=== PATIENT | female | born 1995 | race Caucasian/White ===

== ENCOUNTER 2020-03-16 09:33 | Outpatient (CLI) | payer OTHER ==
--- NOTE | 2020-03-16 10:23 | Non Stress Test Report ---
Non Stress Test Datetime Report Generated by CPN: 03/16/2020 10:23 DEMOGRAPHIC EGA NST: 34.2 INDICATION Indication for Study (NST) Other: 34 weeks 2 vessel cord VITAL SIGNS Temperature - NST: 98.5 Pulse - NST: 117 RESP - NST: 16 NBPSYS NST: 125 NBPDIA NST: 60 MONITORING Monitor Explained: Monitor Explained; Test Explained; Patient Verbalized Understanding Time on Monitor: 03/16/2020 09:04 Time off Monitor: 03/16/2020 10:09 NST Duration: 65 NST INTERVENTIONS NST Interventions: PO Hydration Physician Notified NST: foss BABY A: [id number] BABY A Movement : Present Contraction Frequency : 0 FHR Baseline : 155 Accelerations : 15X15 Decelerations : None Variability : Moderate 6-25bpm NST Review: Meets Criteria for Reactive NST NST Review and Verified By : CLAUDIA Ramírez NSAnnemarie Results: Reactive NST REPORT Report Trigger: Send Report
== END 2020-03-16 10:14 | disposition home or self-care (01) ==
LOC: LC 09:33
PROVIDERS: ATTEND Student in an Organized Health Care Education/Training Program
DX: O36.93X1 Maternal care for fetal problem, unspecified, third trimester, fetus 1 (principal); Z3A.34 34 weeks gestation of pregnancy
CPT/HCPCS: 59025

== ENCOUNTER 2020-04-22 14:30 | Outpatient (CLI) | payer OTHER ==
--- NOTE | 2020-04-22 15:25 | Non Stress Test Report ---
Non Stress Test Datetime Report Generated by CPN: 04/22/2020 15:25 DEMOGRAPHIC EGA NST: 39.4 INDICATION Indication for Study (NST) Other: Two Vessel Cord, Repeat NST from Office VITAL SIGNS Temperature - NST: 98.4 Pulse - NST: 102 RESP - NST: 18 NBPSYS NST: 134 NBPDIA NST: 69 MONITORING Monitor Explained: Monitor Explained; Test Explained; Patient Verbalized Understanding Time on Monitor: 04/22/2020 14:41 Time off Monitor: 04/22/2020 15:10 NST Duration: 29 NST INTERVENTIONS NST Interventions: PO Hydration; Reposition Patient Physician Notified NST: J.Nelson,CNM BABY A: [id number] BABY A Movement : Present Contraction Frequency : Irregular FHR Baseline : 140 Accelerations : 15X15 Decelerations : None Variability : Moderate 6-25bpm NST Review: Meets Criteria for Reactive NST NST Review and Verified By : Gisel Benitez RN NST Results: Reactive NST REPORT Report Trigger: Send Report
== END 2020-04-22 15:17 | disposition home or self-care (01) ==
LOC: LC 14:30
PROVIDERS: ATTEND Obstetrics & Gynecology Gynecology
DX: O47.1 False labor at or after 37 completed weeks of gestation (principal); Z3A.39 39 weeks gestation of pregnancy
CPT/HCPCS: 59025

== ENCOUNTER 2020-04-29 14:54 | Outpatient (CLI) | payer OTHER ==
[2020-04-29 15:26] LABS: APPEARANCE,URINE CLOUDY; BILIRUBIN,URINE NEGATIVE (NEGATIVE); COLOR,URINE YELLOW; GLUCOSE, URINE NEGATIVE (NEGATIVE); KETONES,URINE NEGATIVE (NEGATIVE); LEUKOCYTE ESTERASE,URINE LARGE (NEGATIVE); NITRITE,URINE NEGATIVE (NEGATIVE); PROTEIN,URINE NEGATIVE (NEGATIVE); UROBILINOGEN,URINE NEGATIVE mg/dL (<2.0)
[2020-04-29 15:42] LABS: URINE AMPHETAMINES SCREEN NEGATIVE; URINE BARBITURATES SCREEN NEGATIVE; URINE BENZODIAZEPINES SCREEN NEGATIVE; URINE COCAINE SCREEN NEGATIVE; URINE MARIJUANA (THC) SCREEN NEGATIVE; URINE METHADONE SCREEN NEGATIVE; URINE PHENCYCLIDINE SCREEN NEGATIVE
--- NOTE | 2020-04-29 19:18 | RADIOLOGY REPORT (SQ) ---
EXAM DESCRIPTION: U/S PROFILE W/NONSTRESS IMAGES COMPLETED DATE/TIME: 04/29/2020 7:09 pm REASON FOR STUDY: BPP, flat strip, 2 vessel cord COMPARISON: None. TECHNIQUE: Limited minor-scale realtime and static images of the fetus to measure specified parameter s. LIMITATIONS: None. FINDINGS: HEART RATE: 162 beats per minute. SIMON: 10.2 cm cm. BREATHING MOVEMENT: 2 points. MOVEMENT: 2 points. POSTURE AND TONE: 2 points. QUALITATIVE SIMON: 2 points. OTHER: Vertex lie IMPRESSION: BIOPHYSICAL PROFILE: 05/08. Trimester of : Third - 28 weeks to delivery COMMENT: BREATHING MOVEMENTS: 2 POINTS: PRESENT 0 POINTS: ABSENT MOTION: 2 POINTS: PRESENT 0 POINTS: ABSENT TONE: 2 POINTS: PRESENT 0 POINTS: ABSENT AMNIOTIC FLUID VOLUME: 2 POINTS: LARGEST POCKET GREATER THAN 2 CM DEPTH. 0 POINTS: NO POCKET OF 2 CM. TECHNICAL DOCUMENTATION: JOB ID: [id number] 2010 [employer]- All Rights Reserved Reading location - IP/workstation name: [email or web address]
--- NOTE | 2020-04-29 23:19 | Non Stress Test Report ---
Non Stress Test Datetime Report Generated by CPN: 04/29/2020 23:19 DEMOGRAPHIC EGA NST: 40.4 INDICATION Indication for Study (NST) Other: labor check MONITORING Monitor Explained: Monitor Explained; Test Explained; Patient Verbalized Understanding Monitor Explained: Monitor Explained; Test Explained; Patient Verbalized Understanding Time on Monitor: 04/29/2020 21:46 Time off Monitor: 04/29/2020 22:19 Time off Monitor: 04/29/2020 22:22 NST Duration: 33 NST INTERVENTIONS NST Interventions: None NST Interventions: PO Hydration Physician Notified NST: BABY A: [id number] BABY A Movement : Present Movement : Present Contraction Frequency : 5-6 Contraction Frequency : irreg FHR Baseline : 140 FHR Baseline : 130 Accelerations : 15X15 Accelerations : 15X15 Decelerations : None Decelerations : None Variability : Moderate 6-25bpm Variability : Moderate 6-25bpm NST Review: Meets Criteria for Reactive NST NST Review: Meets Criteria for Reactive NST NST Review and Verified By : Xiomara hall RN NST Results: Reactive NST Results: Reactive NST REPORT Report Trigger: Send Report
== END 2020-04-29 22:30 | disposition home or self-care (01) ==
LOC: LC 14:54
PROVIDERS: ATTEND Obstetrics & Gynecology
DX: O47.1 False labor at or after 37 completed weeks of gestation (principal); Z3A.40 40 weeks gestation of pregnancy
CPT/HCPCS: 59025; 76818; 80307; 81005

== ENCOUNTER 2020-05-02 08:00 | Inpatient (IN) | payer OTHER ==
[2020-05-02 08:31] LABS: APPEARANCE,URINE SLIGHTLY-CLOUDY; BILIRUBIN,URINE NEGATIVE (NEGATIVE); COLOR,URINE YELLOW; GLUCOSE, URINE NEGATIVE (NEGATIVE); KETONES,URINE NEGATIVE (NEGATIVE); LEUKOCYTE ESTERASE,URINE SMALL (NEGATIVE); NITRITE,URINE NEGATIVE (NEGATIVE); PROTEIN,URINE NEGATIVE (NEGATIVE); URINE SPECIFIC GRAVITY 1.005; UROBILINOGEN,URINE NEGATIVE mg/dL (<2.0)
[2020-05-02 08:49] LABS: URINE AMPHETAMINES SCREEN NEGATIVE; URINE BARBITURATES SCREEN NEGATIVE; URINE BENZODIAZEPINES SCREEN NEGATIVE; URINE COCAINE SCREEN NEGATIVE; URINE MARIJUANA (THC) SCREEN NEGATIVE; URINE METHADONE SCREEN NEGATIVE; URINE PHENCYCLIDINE SCREEN NEGATIVE
--- NOTE | 2020-05-02 10:51 | RADIOLOGY REPORT (SQ) ---
EXAM DESCRIPTION: U/S PROFILE W/O STRESS IMAGES COMPLETED DATE/TIME: 05/02/2020 9:52 am REASON FOR STUDY: BPP COMPARISON: 04/29/2020. TECHNIQUE: Limited minor-scale realtime and static images of the fetus to measure specified parameter s. LIMITATIONS: None. FINDINGS: HEART RATE: 136 beats per minute. LVP: 2.0 cm. BREATHING MOVEMENT: 2 points. MOVEMENT: 2 points. POSTURE AND TONE: 2 points. QUALITATIVE SIMON: 2 points. OTHER: No other significant finding. IMPRESSION: BIOPHYSICAL PROFILE: 05/08. Trimester of : Third - 28 weeks to delivery COMMENT: BREATHING MOVEMENTS: 2 POINTS: PRESENT 0 POINTS: ABSENT MOTION: 2 POINTS: PRESENT 0 POINTS: ABSENT TONE: 2 POINTS: PRESENT 0 POINTS: ABSENT AMNIOTIC FLUID VOLUME: 2 POINTS: LARGEST POCKET GREATER THAN 2 CM DEPTH. 0 POINTS: NO POCKET OF 2 CM. TECHNICAL DOCUMENTATION: JOB ID: [id number] 2010 [employer]- All Rights Reserved Reading location - IP/workstation name: [email or web address]
[2020-05-02] MEDS ORDERED: LIDOCAINE 1% INJ-PF (10 MG/ML) 30 ML SDV ONE (13:43)
[2020-05-02] MEDS ORDERED: MISOPROSTOL 0.2 MG TABLET ONE (13:43)
[2020-05-02] MEDS ORDERED: OXYTOCIN/0.9 % SODIUM CHLORIDE 30 UNIT/500 ML RTUINJ ONE (13:43)
[2020-05-02] MEDS ORDERED: OXYTOCIN 10 UNIT/ML VIAL ONE (13:43)
[2020-05-02] MEDS: RINGERS SOLUTION,LACTATED 1,000 ML IV PRN ×3 (14:00→19:03)
[2020-05-02 14:27] LABS: HEMATOCRIT 38.4 % (36.0-47.0); HEMOGLOBIN 13.1 g/dL (12.0-15.5); MEAN CORPUSCULAR HEMOGLOBIN 29.6 pg (27.0-33.4); MEAN CORPUSCULAR VOLUME 87 fl (80-97); PLATELET COUNT 171 10^3/uL (150-450); RED BLOOD COUNT 4.42 10^6/uL (3.72-5.28); RED CELL DISTRIBUTION WIDTH 15.3 % (11.5-14.0); WHITE BLOOD COUNT 12.6 10^3/uL (4.0-10.5)
[2020-05-02] MEDS ORDERED: NALBUPHINE HCL INJ 10 MG/1 ML AMPULE IV ONE (15:44)
[2020-05-02] MEDS ORDERED: NALBUPHINE HCL INJ 10 MG/1 ML AMPULE ONE (15:54)
[2020-05-02] MEDS ORDERED: EPHEDRINE SULFATE INJ 50 MG/1 ML AMPULE ONE (18:12)
[2020-05-02] MEDS ORDERED: FENTANYL/BUPIVACAINE/NS/PF 300 MCG/150 ML RTUINJ EPI ONE (18:12)
[2020-05-02] MEDS ORDERED: ROPIVACAINE HCL 0.2% INJ/PF (2 MG/ML) 20 ML SDV ONE (18:13)
[2020-05-03] MEDS ORDERED: OXYTOCIN/0.9 % SODIUM CHLORIDE 30 UNIT/500 ML RTUINJ IV PRN ×2 (00:55→11:04)
[2020-05-03] MEDS ORDERED: ACETAMINOPHEN 325 MG TABLET PO ONE (01:54)
[2020-05-03] MEDS ORDERED: ACETAMINOPHEN 325 MG TABLET ONE (01:55)
[2020-05-03] MEDS: RINGERS SOLUTION,LACTATED 1,000 ML IV PRN (01:58)
--- NOTE | 2020-05-03 09:32 | Admission Physical ---
Datetime Report Generated by CPN: 05/03/2020 09:31 CURRENT ADMISSION Chief Complaint: Uterine Contractions Indication for Induction: Not Applicable Admit Impression : Active Labor Admit Plan: Admit to Unit ALLERGIES Medication Allergies: Unknown Medication Allergies: No Known Allergies (05/02/2020) Latex: Unknown Food Allergies: None Environmental Allergies: None OBSTETRICAL HISTORY EDC: 04/25/2020 00:00 : 1 Para: 0 Term: 0 : 0 SAB: 0 IAB: 0 Ectopic: 0 Livin Cesareans: 0 VBACs: 0 Multiple Births: 0 Gestational Diabetes: No Rh Sensitization: No Incompetent Cervix: No GABRIELLE: No Infertility: No ART Treatment: No Uterine Anomaly: No IUGR: No Hx Previous C/S: No Macrosomia: No Hx Loss/Stillborn: No PIH: No Hx : No Placenta Previa/Abruption: Unknown Depression/PP Depression: No PTL/PROM: No Post Hemorrhage: No Current Procedures: Ultrasound; NST Obstetrical History Comments: G-1 Current, 2 vessel cord SEE RECORDS Alcohol: No Marijuana : No Cocaine: No Other Illicit Drugs: No Cigarettes: Never Smoker. 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: No Heart Disease: No Hosp/Surgery: Yes Autoimmune Disorder: No Anesthetic Complications: No Kidney Disease: No Abnormal Pap Smear: No Neuro/Epilepsy: No Psychiatric Disorders: No Other Medical Diseases: No Hepatitis/Liver Disease: No Significant Family History: No Varicosities/Phlebitis: No Trauma/Violence : No Thyroid Dysfunction: No Medical History Comments: appendectomy age 11, hernia repair age 12 INFECTIOUS HISTORY Gonorrhea: No Genital Herpes: Yes Chlamydia: No Tuberculosis: No Syphilis: No Hepatitis: No HIV/AIDS Exposure: No Rash or Viral Illness: No HPV: No PHYSICAL EXAM General: Normal HEENT: Deferred Neurologic: Normal Thyroid: Deferred Heart: Normal Lungs: Normal Breast: Deferred Back: Deferred Abdomen: Normal Genitourinary Exam: Normal Extremities: Normal DTRs: Deferred Pelvic Type: Adequate Physical Exam Comments: was admitted overnight, SROM at 4am Vital Signs: Reviewed VAGINAL EXAM Dilatation: 10 MEMBRANES Membranes: Ruptured Amniotic Fluid Color: Bloody FETUS A EGA: 41.1 Monitoring: External US FHR- Baseline: 150 Variability: Moderate 6-25bpm Accelerations: 15X15 Decelerations: None FHR Category: Category I Presentation: Vertex Admit Comment: HSV, taking Valtrex, no lesions on exam 2VC High preg wt gain GBS neg PLANS FOR LABOR AND DELIVERY Labor and Delivery: None Pain Management: None Feeding Preference: Both Benefit of Breast Feed Discussed: Yes Circumcision: No INFORMED CONSENT Assignment: Valerie Barbosa MD Signature: with User ID: Nik : with User ID: Nik
[2020-05-03] MEDS ORDERED: FENTANYL/BUPIVACAINE/NS/PF 300 MCG/150 ML RTUINJ EPI ONE (10:03)
[2020-05-03] MEDS ORDERED: MAGNESIUM HYDROXIDE SUSP 30 ML UDCUP PO PRN (11:04)
[2020-05-03] MEDS ORDERED: PROMETHAZINE HCL 25 MG SUPP.RECT PR PRN (11:04)
[2020-05-03] MEDS ORDERED: MEASLES,MUMPS&RUBELLA VACC/PF 0.5 ML VIAL SUBCUT PRN (11:04)
[2020-05-03] MEDS ORDERED: NA PHOS,M-B/NA PHOS,DI-BA (ADULT) 133 ML ENEMA PR PRN (11:04)
[2020-05-03] MEDS ORDERED: DIPH/PERTUSS(ACELL)/TETANUS VAC/PF 0.5 ML SYR (>=10YO) IM PRN (11:04)
[2020-05-03] MEDS ORDERED: ACETAMINOPHEN WITH CODEINE #3 TABLET PO PRN (11:04)
[2020-05-03] MEDS ORDERED: PSEUDOEPHEDRINE HCL 30 MG TABLET PO PRN (11:04)
[2020-05-03] MEDS ORDERED: ACETAMINOPHEN 325 MG TABLET PO PRN (11:04)
[2020-05-03] MEDS ORDERED: GLYCERIN/WITCH HAZEL LEAF 1 EACH MED..WIPE TP PRN (11:04)
[2020-05-03] MEDS ORDERED: DIPHENHYDRAMINE HCL 25 MG CAPSULE PO PRN (11:04)
[2020-05-03] MEDS ORDERED: ZOLPIDEM TARTRATE 5 MG TABLET PO PRN (11:04)
[2020-05-03] MEDS ORDERED: PROMETHAZINE HCL INJ 25 MG/1 ML VIAL IV PRN (11:04)
[2020-05-03] MEDS ORDERED: ACETAMINOPHEN 650 MG SUPP.RECT PR PRN (11:04)
[2020-05-03] MEDS ORDERED: DIBUCAINE 1% OINTMENT 28 GM TP PRN (11:04)
[2020-05-03] MEDS ORDERED: PROMETHAZINE HCL 25 MG TABLET PO PRN (11:04)
[2020-05-03] MEDS ORDERED: AMPICILLIN SOD/SULBACTAM 3 GM VIAL ONE (11:19)
[2020-05-03] MEDS ORDERED: FENTANYL CITRATE INJ/PF 100 MCG/2 ML AMPUL ONE (11:32)
[2020-05-03] MEDS ORDERED: LIDOCAINE 1% INJ-PF (10 MG/ML) 30 ML SDV ONE (11:45)
--- NOTE | 2020-05-03 12:58 | Delivery Summary ---
Del Sum A-C Datetime Report Generated by CPN: 05/03/2020 12:57 DELIVERY PERSONNEL DELIVERY PERSONNEL: [id number] Delivery Doctor:: Valerie Barbosa MD Nurse Warehouse Record Clerk Certified:: Genoveva Reis CNM Labor and Delivery Nurse:: Kristina Ludwig RNfounder ceo & president Nurse:: Randy Maxwell RN Traffic Investigator/MANAGEMENT ASSISTANT: ST [facility] Traffic Investigator/MANAGEMENT ASSISTANT: Lisset Moody, DRILLER MULTIPLE SPINDLE Additional Personnel: : Venus Benitez RN MATERNAL INFORMATION Delivery Anesthesia: Epidural Medications After Delivery: Pitocin 30 Units in 500ml NS/D5W Delivery QBL: 700 Delivery QBL Comment: 700 Maternal Complications: None Provider Comments: SVDVF RAMILA with loose nuchal cord reduced, turtle sign noted. Called Dr. Barbosa to delivery. Attempted to delivery ant shoulder (right) with Sherrell and suprapubic pressure, Dr. Barbosa into room. Infant delivered with effective suprapubic pressure and downward traction. NRP on maternal abd, infant cried with stimulation. Cord blood collected, placenta delivered spont via hylton. Bleeding moderate, uterine sweep revealed membranes and febrile uterus. Unasyn 300g ordered. Dr. Barbosa back into del room for repair of 3*lac as documented above. Hematoma developing on Rt. Pt was given Fentanyl 75mg additionally for repairs. Vaginal packing with iodine placed, FC placed to keep bladder empty per Dr. Barbosa's orders. Will remove packing in am and remove FC. Apgars 7,8. Bleeding stabilized after repair of high vaginal wall. Mother and infant stable upon providers leaving room. LABOR SUMMARY EDC: 04/25/2020 00:00 No. Babies in Womb: 1 Attempted: No Labor Anesthesia: Epidural LABOR INFORMATION Reason for Induction: Not Applicable Onset of Labor: 05/03/2020 05:05 Complete Dilatation: 05/03/2020 09:16 Group B Beta Strep: negative (Annotations: Data stored by [facility] on behalf of user) Steroids Given: None Reason Steroids Not Administered: Not Applicable MEMBRANES Membranes Rupture Method: Spontaneous Rupture of Membranes: 05/03/2020 05:06 Length of Rupture (hr): 6.02 Amniotic Fluid Color: Clear Amniotic Fluid Amount: Small Amniotic Fluid Odor: Normal STAGES OF LABOR Stage 1 hr: 4 Stage 1 min: 11 Stage 2 hr: 1 Stage 2 min: 51 VAGINAL DELIVERY Episiotomy: None Laceration #1: Perineal Laceration Extension #1: Third Degree, IIIc (Both ext and int anal sphincter torn) Laceration Repair: Yes Laceration Repair Note: 3rd degree components and high vaginal wall lac repaired by Dr. Barbosa, I completed 2nd degree repairs. Repairs with vicryl suture, well approximated muscle and skin. CSECTION DELIVERY Uterine Closure: N/A BABY A INFORMATION Delivery Date/Time: 05/03/2020 11:07 Method of Delivery: Vaginal Nurse Controlled Delivery: No Born in Route : No : N/A Forceps: N/A Vacuum Extraction: N/A Shoulder Dystocia : Yes SHOULDER DYSTOCIA BABY A Delivery of Head: 05/03/2020 11:07 Time Head to Delivery : 0.0 1st Intervention to Resolve: Gentle Attempt at Traction, Assisted by Maternal Expulsive Efforts 2nd Intervention to Resolve: McRobert's Maneuver 3rd Intervention to Resolve: Suprapubic Pressure Verify NO Fundal Pressure: No Fundal Pressure Applied Arm Under Symphisis at Del: Right PRESENTATION/POSITION BABY A Presentation: Cephalic Cephalic Presentation: Vertex Vertex Position: Left Occipital Anterior Breech Presentation: N/A PLACENTA INFORMATION BABY A Placenta Method of Delivery: Curettage Placenta Status: Delivered SCORES BABY A Heart Rate 1 min: >100 bpm Resp Effort 1 min: Good Cry Reflex Irritability 1 min: Cough or Sneeze or Pulls Away Muscle Tone 1 min: Some Flexion of Extremities Color 1 min: Blue/Pale Resuscitation Effort 1 min: Tactile Stimulation SCORE 1 MIN: 7 Heart Rate 5 min: >100 bpm Resp Effort 5 min: Good Cry Reflex Irritability 5 min: Cough or Sneeze or Pulls Away Muscle Tone 5 min: Active Motion Color 5 min: Blue/Pale Resuscitation Effort 5 min: Tactile Stimulation SCORE 5 MIN: 8 INFANT INFORMATION BABY A Gestational Age at Delivery: 41.1 Gestational Status: Late Term- 41- 41.6 Weeks Outcome : Liveborn Condition : Stable Sex: Female IDENTIFICATION BABY A Infant Verification Date/Time: 05/03/2020 11:51 ID Band Number: [id number] Mother's Name Verified: Yes RN Verifying Infant: Randy Maxwell, CLAUDIA Additional Verifying Personnel: Hitesh Ludwig RN CORD INFORMATION BABY A No. Cord Vessels: 2 Nuchal Cord : Around Neck x1, Loose Cord Blood Taken: Yes-For Eval (Mom's Blood Type - or O+) Suction: Mouth; Nose ASSESSMENT BABY A Infant Complications: Shoulder Dystocia Transferred To: Remains with Mother BABY B INFORMATION : N/A SIGNATURES Assignment: Valerie Barbosa MD Signature: with User ID: [email or web address] : with User ID: [email or web address] : I was personally available for consultation and serving as supervising physician for the P.
[2020-05-03] MEDS ORDERED: IBUPROFEN 800 MG TABLET ONE (13:56)
[2020-05-03] MEDS ORDERED: BENZOCAINE/MENTHOL AEROSOL SPRAY 56 ML ONE (13:57)
[2020-05-03] MEDS: IBUPROFEN 800 MG TABLET PO SCH ×2 (13:59→21:23)
[2020-05-03] MEDS: ACETAMINOPHEN WITH CODEINE #3 TABLET PO PRN ×3 (14:54→23:24)
[2020-05-03] MEDS: FERROUS SULFATE 325 MG TABLET PO SCH (17:22)
[2020-05-03] MEDS: DOCUSATE SODIUM 100 MG CAPSULE PO SCH (17:22)
[2020-05-03] MEDS ORDERED: AMPICILLIN SOD/SULBACTAM 1.5 GM VIAL IV SCH (20:00)
[2020-05-03] MEDS: AMPICILLIN SODIUM/SULBACTAM NA 1.5 GM in NORMAL SALINE 50 ML IV SCH (21:23)
[2020-05-03] MEDS: FAMOTIDINE 20 MG TABLET PO SCH (21:24)
[2020-05-03] MEDS: BENZOCAINE/MENTHOL AEROSOL SPRAY 56 ML TOP PRN (23:25)
[2020-05-04] MEDS: AMPICILLIN SODIUM/SULBACTAM NA 1.5 GM in NORMAL SALINE 50 ML IV SCH ×3 (03:53→21:59)
[2020-05-04] MEDS: ACETAMINOPHEN WITH CODEINE #3 TABLET PO PRN ×3 (03:54→13:53)
[2020-05-04] MEDS: BENZOCAINE/MENTHOL AEROSOL SPRAY 56 ML TOP PRN ×2 (03:57→23:25)
[2020-05-04] MEDS: IBUPROFEN 800 MG TABLET PO SCH ×3 (05:42→21:58)
[2020-05-04 08:42] LABS: HEMATOCRIT 25.2 % (36.0-47.0); MEAN CORPUSCULAR HEMOGLOBIN 29.7 pg (27.0-33.4); MEAN CORPUSCULAR HGB CONC 33.8 g/dL (32.0-36.0); MEAN CORPUSCULAR VOLUME 88 fl (80-97); PLATELET COUNT 114 10^3/uL (150-450); RED BLOOD COUNT 2.87 10^6/uL (3.72-5.28); RED CELL DISTRIBUTION WIDTH 15.2 % (11.5-14.0); WHITE BLOOD COUNT 11.3 10^3/uL (4.0-10.5)
[2020-05-04 08:47] LABS: HEMOGLOBIN 8.5 g/dL (12.0-15.5)
[2020-05-04] MEDS: DOCUSATE SODIUM 100 MG CAPSULE PO SCH ×2 (09:24→18:07)
[2020-05-04] MEDS: PRENATAL VITAMIN W DHA CAPSULE PO SCH (09:24)
[2020-05-04] MEDS: FERROUS SULFATE 325 MG TABLET PO SCH ×2 (09:24→18:07)
[2020-05-04] MEDS: SENNOSIDES/DOCUSATE 8.6-50 MG 1 EACH TABLET PO SCH (09:24)
[2020-05-04] MEDS: FAMOTIDINE 20 MG TABLET PO SCH ×2 (09:50→23:25)
--- NOTE | 2020-05-04 11:14 | PDOC PROGRESS REPORT ---
Subjective-OB Progress Note for:: 05/04/20 Subjective: Feeling ok, holding baby, perineal pain, hsb in room, olivas and vaginal pack in, breast feeding Physical Exam (OB) Vital Signs: Temp Pulse Resp BP Pulse Ox 97.8 F 95 16 117/60 99 05/04/20 08:00 05/04/20 08:00 05/04/20 08:00 05/04/20 08:00 05/04/20 08:00 Intake & Output 05/03/20 05/04/20 05/05/20 06:59 06:59 06:59 Intake Total 1496 100 Output Total 2702 Balance 1496 -2602 Weight 115.3 kg - PIH/Pre-Eclampsia DTR's: 2 + Clonus: Negative Headache: Absent Epigastric Pain: No Visual Changes: No - Lochia Lochia Amount: Small 10-25 ml Lochia Color: Rubra/Red - Abdomen Description: Tender, Soft Hernia Present: No Fundal Description: Firm, Midline Fundal Height: u/u - u/2 Objective-Diagnostic Laboratory: 05/04/20 07:54 05/04/20 07:54 WBC 11.3 H RBC 2.87 L Hgb 8.5 L D Hct 25.2 L MCV 88 MCH 29.7 MCHC 33.8 RDW 15.2 H Plt Count 114 L Assessment and Plan(PN) - Assessment and Plan (1) Anemia Qualifiers: Other causes of anemia: acute posthemorrhagic Is this a current diagnosis for this admission?: Yes (3) Active labor at term Is this a current diagnosis for this admission?: Yes (4) Post-dates Qualifiers: Post-term type: 40-42 weeks gestation Qualified Code(s): O48.0 - Post-term Is this a current diagnosis for this admission?: Yes - Time Spent with Patient Time with patient: Less than 15 minutes Medications reviewed and adjusted accordingly: Yes - Disposition Anticipated Discharge Disposition: Home, Self Care Anticipated Discharge Timeframe: within 48 hours
[2020-05-04] MEDS ORDERED: FAMOTIDINE 20 MG TABLET ONE (22:15)
[2020-05-05] MEDS: AMPICILLIN SODIUM/SULBACTAM NA 1.5 GM in NORMAL SALINE 50 ML IV SCH ×2 (04:59→11:56)
[2020-05-05] MEDS: IBUPROFEN 800 MG TABLET PO SCH ×2 (05:05→14:16)
[2020-05-05 08:24] VITALS: BP 136/84
[2020-05-05] MEDS: SENNOSIDES/DOCUSATE 8.6-50 MG 1 EACH TABLET PO SCH (09:57)
[2020-05-05] MEDS: FERROUS SULFATE 325 MG TABLET PO SCH (09:57)
[2020-05-05] MEDS: PRENATAL VITAMIN W DHA CAPSULE PO SCH (09:57)
[2020-05-05] MEDS: DOCUSATE SODIUM 100 MG CAPSULE PO SCH (09:57)
[2020-05-05] MEDS: FAMOTIDINE 20 MG TABLET PO SCH (09:58)
--- NOTE | 2020-05-05 13:24 | PDOC DISCHARGE SUMMARY ---
Impression - Admit/DC Date/PCP Admission Date/Primary Care Provider: 05/02/20 13:36 Discharge Date: 05/05/20 - Discharge Diagnosis (1) Third degree perineal laceration during delivery, iiic Is this a current diagnosis for this admission?: Yes (2) Anemia Is this a current diagnosis for this admission?: Yes (3) Shoulder (girdle) dystocia during labor and deliver, delivered Is this a current diagnosis for this admission?: Yes (4) Active labor at term Is this a current diagnosis for this admission?: Yes (5) Post-dates Is this a current diagnosis for this admission?: Yes - Assessment Summary: 24yo G1 now P1 s/p vaginal delivery ppd2 stable and ready for discharge, understands warning s/s and when to rtc/[facility]. needs f/u appt in 1 week - Additional Information Resuscitation Status: Full Code Discharge Diet: As Tolerated, Regular Discharge Activity: Activity As Tolerated, Balance Activity w/Rest, No Lifting Over 10 Pounds, Pelvic Rest, No tub bath, Walk Frequently Prescriptions: Ibuprofen [Motrin 800 mg Tablet] 800 mg PO Q8HP PRN #20 tablet PRN Reason: For Pain Scale 1-3 Docusate Sodium [Colace 100 mg Capsule] 100 mg PO BID #60 capsule Benzocaine/Menthol [Dermoplast Aerosol [place] 56 ml] 1 applic TOP PRN PRN #1 can PRN Reason: For Breakthrough Pain Ferrous Sulfate [Feosol 325 mg Tablet] 325 mg PO BID #60 tablet Home Medications: Vit/Dha [ Multi + Dha Capsule] 1 cap PO DAILY 03/16/20 Valacyclovir HCl [Valtrex 500 mg Tablet] 500 mg PO BID 04/22/20 Benzocaine/Menthol [Dermoplast Aerosol [place] 56 ml] 1 applic TOP PRN PRN #1 can 05/05/20 Docusate Sodium [Colace 100 mg Capsule] 100 mg PO BID #60 capsule 05/05/20 Ferrous Sulfate [Feosol 325 mg Tablet] 325 mg PO BID #60 tablet 05/05/20 Ibuprofen [Motrin 800 mg Tablet] 800 mg PO Q8HP PRN #20 tablet 05/05/20 Results Laboratory Results: WBC 11.3 10^3/uL (4.0-10.5) H 05/04/20 07:54 RBC 2.87 10^6/uL (3.72-5.28) L 05/04/20 07:54 Hgb 8.5 g/dL (12.0-15.5) L D 05/04/20 07:54 Hct 25.2 % (36.0-47.0) L 05/04/20 07:54 MCV 88 fl (80-97) 05/04/20 07:54 MCH 29.7 pg (27.0-33.4) 05/04/20 07:54 MCHC 33.8 g/dL (32.0-36.0) 05/04/20 07:54 RDW 15.2 % (11.5-14.0) H 05/04/20 07:54 Plt Count 114 10^3/uL (150-450) L 05/04/20 07:54 Urine Color YELLOW 05/02/20 08:07 Urine Appearance SLIGHTLY-CLOUDY 05/02/20 08:07 Urine pH 7.0 (5.0-9.0) 05/02/20 08:07 Ur Specific [place] 1.005 05/02/20 08:07 Urine Protein NEGATIVE mg/dL (NEGATIVE) 05/02/20 08:07 Urine Glucose (UA) NEGATIVE mg/dL (NEGATIVE) 05/02/20 08:07 Urine Ketones NEGATIVE mg/dL (NEGATIVE) 05/02/20 08:07 Urine Blood SMALL (NEGATIVE) H 05/02/20 08:07 Urine Nitrite NEGATIVE (NEGATIVE) 05/02/20 08:07 Urine Bilirubin NEGATIVE (NEGATIVE) 05/02/20 08:07 Urine Urobilinogen NEGATIVE mg/dL (<2.0) 05/02/20 08:07 Ur Leukocyte Esterase SMALL (NEGATIVE) H 05/02/20 08:07 Urine Ascorbic Acid NEGATIVE (NEGATIVE) 05/02/20 08:07 Urine Opiates Screen NEGATIVE 05/02/20 08:07 Urine Methadone Screen NEGATIVE 05/02/20 08:07 Ur Barbiturates Screen NEGATIVE 05/02/20 08:07 Ur Phencyclidine Scrn NEGATIVE 05/02/20 08:07 Ur Amphetamines Screen NEGATIVE 05/02/20 08:07 U Benzodiazepines Scrn NEGATIVE 05/02/20 08:07 Urine Cocaine Screen NEGATIVE 05/02/20 08:07 U Marijuana (THC) Screen NEGATIVE 05/02/20 08:07 RPR NONREACTIVE (NONREACTIVE) 05/02/20 14:00 Blood Type O POSITIVE 05/02/20 14:00 Antibody Screen NEGATIVE 05/02/20 14:00 Impressions: Stress Test 05/02/20 00:00 IMPRESSION: BIOPHYSICAL PROFILE: 05/08. Trimester of : Third - 28 weeks to delivery
[2020-05-05] MEDS: BENZOCAINE/MENTHOL AEROSOL SPRAY 56 ML TOP PRN (16:25)
== END 2020-05-05 17:06 | disposition home or self-care (01) | DRG 768 ==
LOC: LC 08:00 → LR 13:36 → 2S 05-03 14:11
PROVIDERS: ADMIT Student in an Organized Health Care Education/Training Program; ATTEND Student in an Organized Health Care Education/Training Program
PROC: 10E0XZZ Delivery of Products of Conception, External Approach (ICD-10-PCS; principal; 2020-05-03)
PROC: 0DQR0ZZ Repair Anal Sphincter, Open Approach (ICD-10-PCS; 2020-05-03)
DX: O48.0 Post-term pregnancy (principal); O70.23 Third degree perineal laceration during delivery, IIIc; Z37.0 Single live birth; O69.81X0 Labor and delivery complicated by cord around neck, without compression, not applicable or unspecified; O69.89X0 Labor and delivery complicated by other cord complications, not applicable or unspecified; O66.0 Obstructed labor due to shoulder dystocia; Z3A.41 41 weeks gestation of pregnancy
CPT/HCPCS: 1967; 36415; 76819; 80307; 81005; 85027; 86592; 86850; 86900; 86901; 88307; C1758; J0295; J2300; J2590; J2795; J3010; J3490